=== PATIENT | male | born 1985 | race Caucasian/White ===

== ENCOUNTER 2021-06-26 21:21 | Emergency (ER) | payer OTHER ==
[2021-06-26 21:35] VITALS: BP 129/69
[2021-06-26 23:54] LABS: ALBUMIN 3.8 g/dL (3.5-5.0); BILIRUBIN,TOTAL 0.5 mg/dL (0.2-1.0); CREATININE 1.3 mg/dL (0.5-1.5); THYROID STIMULATING HORMONE 2.12 uIU/mL (0.36-3.74); TOTAL PROTEIN, SERUM 7.8 g/dL (6.0-8.3)
[2021-06-27 00:13] LABS: BASOPHILS % (AUTO) 0.3 % (0.0-5.0); EOSINOPHILS % (AUTO) 0.3 % (0.0-8.0); HEMATOCRIT 40.7 % (42-54); LYMPHOCYTES % (AUTO) 11.2 % (21.0-51.0); MEAN CORPUSCULAR HEMOGLOBIN 29.7 pg (27.0-33.0); MEAN CORPUSCULAR HGB CONC 33.7 g/dL (32.0-36.0); MEAN CORPUSCULAR VOLUME 88.3 fL (79-99); MONOCYTES % (AUTO) 8.2 % (3.0-13.0); NEUTROPHILS % (AUTO) 79.6 % (40.0-77.0); PLATELET COUNT (AUTO) 169 K/uL (130-400); RED BLOOD CELL COUNT(AUTO) 4.61 MIL/uL (4.50-6.20); RED CELL DISTRIBUTION WIDTH 12.9 % (11.0-15.5)
[2021-06-27 00:43] LABS: AMPHET/METH SCREEN,URINE NEGATIVE (NEGATIVE); BARBITURATE SCREEN, URINE NEGATIVE (NEGATIVE); BENZODIAZEPINES SCREEN,URINE NEGATIVE (NEGATIVE); CANNABINOID SCREEN,URINE NEGATIVE (NEGATIVE); COCAINE SCREEN,URINE NEGATIVE (NEGATIVE); OPIATE SCREEN,URINE POSITIVE (NEGATIVE); PHENCYCLIDINE SCREEN,URINE POSITIVE (NEGATIVE)
[2021-06-27 01:00] VITALS: BP 121/75
[2021-06-27] MEDS ORDERED: NAPR-1180 PO (01:00)
== END 2021-06-27 01:35 | disposition home or self-care (01) ==
LOC: EDH 21:21
DX: R56.9 Unspecified convulsions (principal); T40.425A Adverse effect of tramadol, initial encounter; E03.9 Hypothyroidism, unspecified; R73.9 Hyperglycemia, unspecified; R94.5 Abnormal results of liver function studies; I10 Essential (primary) hypertension; G89.29 Other chronic pain; M54.5 Low back pain
CPT/HCPCS: 36415; 70450; 80053; 80305; 84443; 85025

== ENCOUNTER 2024-08-23 02:39 | Emergency (ER) | payer BC ==
[~2024-08-23] VITALS: Ht 182.9 cm; Wt 162.8 kg
[2024-08-23] MEDS: 0.9%NACL 1000ML 1,000 ML IV ONE (04:12)
[2024-08-23] MEDS: ketOROlac 15MG/ML VIAL (15MG/ML) IV ONE ×2 (04:13→05:18)
[2024-08-23 04:17] LABS: BASOPHILS # (AUTO) 0.02 K/uL (0.00-0.20); BASOPHILS % (AUTO) 0.3 % (0.0-5.0); EOSINOPHILS # (AUTO) 0.02 K/uL (0.00-0.70); EOSINOPHILS % (AUTO) 0.3 % (0.0-8.0); HEMATOCRIT 43.6 % (42-54); IMMATURE GRANULOCYTE ABSOLUTE 0.03 K/uL (0-1); LYMPHOCYTES # (AUTO) 1.7 K/uL (1.0-4.8); LYMPHOCYTES % (AUTO) 21.2 % (21.0-51.0); MEAN CORPUSCULAR HEMOGLOBIN 29.5 pg (27.0-33.0); MEAN CORPUSCULAR HGB CONC 33.9 g/dL (32.0-36.0); MEAN CORPUSCULAR VOLUME 86.9 fL (79-99); MONOCYTES # (AUTO) 0.8 K/uL (0.1-1.0); MONOCYTES % (AUTO) 10.3 % (3.0-13.0); NEUTROPHILS # (AUTO) 5.4 K/uL (1.8-7.7); NEUTROPHILS % (AUTO) 67.5 % (40.0-77.0); PLATELET COUNT (AUTO) 208 K/uL (130-400); RED BLOOD CELL COUNT(AUTO) 5.02 MIL/uL (4.50-6.20); RED CELL DISTRIBUTION WIDTH 12.1 % (11.0-15.5); WHITE BLOOD COUNT (AUTO) 7.9 K/uL (4.8-10.8)
[2024-08-23 04:25] LABS: POTASSIUM 3.6 mmol/L (3.5-5.1)
[2024-08-23] MEDS: tamSULOsin HCL 0.4 MG CAP.ER.24H PO ONE (05:18)
[2024-08-23 05:29] LABS: APPEARANCE,URINE CLEAR (CLEAR); BILIRUBIN,URINE NEGATIVE (NEGATIVE); COLOR,URINE LIGHT-YELLOW (YELLOW); GLUCOSE, URINE (UA) >=1000 mg/dL (NEGATIVE); KETONES,URINE 20 mg/dL (NEGATIVE); LEUKOCYTE ESTERASE ,URINE NEGATIVE Leu/uL (NEGATIVE); NITRATE,URINE NEGATIVE (NEGATIVE); OCCULT BLOOD,URINE NEGATIVE (NEGATIVE); PH,URINE 6.5 (5.0-8.0); PROTEIN,URINE NEGATIVE (NEGATIVE); UROBILINOGEN,URINE 0.2 mg/dL (0.2-1.0)
[2024-08-23 05:31] LABS: BACTERIA,URINE RARE /HPF (None Seen); SQUAMOUS EPITHELIAL CELL,UR RARE /HPF (0-2)
[2024-08-23 06:59] LABS: AMPHET/METH SCREEN,URINE NEGATIVE (NEGATIVE); BARBITURATE SCREEN, URINE NEGATIVE (NEGATIVE); BENZODIAZEPINES SCREEN,URINE NEGATIVE (NEGATIVE); CANNABINOID SCREEN,URINE NEGATIVE (NEGATIVE); COCAINE SCREEN,URINE NEGATIVE (NEGATIVE); OPIATE SCREEN,URINE NEGATIVE (NEGATIVE); PHENCYCLIDINE SCREEN,URINE NEGATIVE (NEGATIVE)
[2024-08-23] MEDS: ORPHENADRINE 60MG/2ML IM ONE (07:13)
[2024-08-23] MEDS: TRIAMCINOLONE ACETONIDE 40 MG/ML 1ML VIAL IM ONE (07:13)
[2024-08-23 07:34] VITALS: BP 118/76; PULSE 88; RESP 17; TEMP 97.9; O2SAT 98
== END 2024-08-23 07:42 | disposition home or self-care (01) ==
LOC: EDH 02:39
DX: G89.29 Other chronic pain (principal); M54.50 Low back pain, unspecified; I10 Essential (primary) hypertension
CPT/HCPCS: 99284; 74176; 96374; 96361; 80048; 80305; 85025; 81001; 36415; 96372 ×2; 96376; J7030; J3301; J1885 ×2; J2360

== ENCOUNTER 2024-10-10 08:44 | Emergency (ER) | payer BC ==
[~2024-10-10] VITALS: Ht 182.9 cm; Wt 142.9 kg
[2024-10-10 08:46] VITALS: TEMP 98.3
--- NOTE | 2024-10-10 08:55 | NUR ---
PT JUST PLACED IN MY ED BED 18 BY [facility].
--- NOTE | 2024-10-10 09:12 | NUR ---
SEIZURE PRECAUTION PADS PLACED ON SR X 2 BY RITA WILKS
--- NOTE | 2024-10-10 09:14 | NUR ---
DETOX: PT ASKED IF WE DID "DETOX" IN OUR FACILITY. ED MD MADE AWARE. PT TAKES TRAMADOL FOR HIS CHRONIC BACK/NECK PAINS. HAS NOT TAKEN HIS BP MEDS IN 7 DAYS (LISINOPRIL/AMLODIPINE)
[2024-10-10] MEDS: LORazepam 2 MG/ML 1 ML VIAL IVP ONE (09:22)
[2024-10-10] MEDS: leveTIRACEtam 500 MG/5 ML SD VIAL IV SCH (09:22)
[2024-10-10] MEDS: 0.9%NACL 1000ML 1,000 ML IV ONE (09:22)
--- NOTE | 2024-10-10 09:26 | ERN ---
ED Note History of Present Illness Stated Complaint: SEIZURE Chief Complaint: Seizure Time Seen by MD: 08:51 Dictation: 38-year-old male presents to the ED via EMS for evaluation post seizure. Patient reports back pain and neck discomfort, but denies any SI or any other as sociated symptoms at this time. EMS was called by patient's place of employment for a witnessed seizure that lasted around 30 seconds to 1 minute. Patient does not remember what happened. No blood thinners. Patient reports taking 5 pills of tramadol today and 4 pills of tramadol yesterday. Patient takes pain medication due to his sciatica pain. Allergies: Coded Allergies: No Known Drug Allergies (Unverified Allergy, Unknown, 10/05/23) Home Meds No Active Prescriptions or Reported Meds Past Medical History Past Medical History: Hypertension, Seizure Additional Past Medical Hx: Chronic low back pain, sciatic pain Surgical History: None Family History: Negative Social History: Negative Review of System Dictation Constitutional: Positive for seizure Negative for fever,chills, and weight loss Eyes: Negative for injury, pain,redness, and discharge ENT: Negative for injury,pain or swelling Cardiovascular: Negative for chest pain, palpitations, and edema Respiratory: Negative for shortness of breath, cough, and wheezing, Abdomen/GI: Negative for abdominal pain, nausea, vomiting, diarrhea, and constipation Back: Positive for back pain : Negative for injury, bleeding and discharge MS/Extremity: Negative for injury and deformity Skin: Negative for rash, and discoloration Neuro: Negative for headache, weakness, numbness, tingling, and seizure Psych: Negative for suicide ideation, homicidal ideation, and hallucinations Initial Vital Sign VS Vital Signs Date Time Temp Pulse Resp B/P (MAP) Pulse Ox O2 Delivery O2 Flow Rate FiO2 10/10/24 08:46 98.2 114 20 156/86 99 Room Air 10/10/24 08:57 0 21 Physical Exam Dictation General: awake, alert, NAD Head/Face: Normocephalic, atraumatic Eyes: PERRL, EOMI, vision at baseline ENT: oral cavity clear, TMs clear, no signs of infection Neck: Trachea midline, supple, no nuchal rigidity Cardiovascular: RRR, normal S1/S2, No MRGs, no JVD Respiratory: CTAB, no respiratory distress, No rales or wheezes Abdomen: Soft, non-tender, non-distended, normal bowel sounds, no guarding or rebound. Skin: Warm, dry, normal turgor, no rash MS/Extremity: Pulses equal, no cyanosis, neurovascular intact, FROM Neuro: COAx4, GCS 15, strength 5/5, CN 2-12 intact, normal cerebellar exam, normal gait, Psych: Normal behavior, mood, and affect normal Results (Laboratory/Radiology) Laboratory/Radiology Laboratory Tests Test 10/10/24 09:28 White Blood Count 5.4 K/uL (4.8-10.8) Red Blood Count 4.76 MIL/uL (4.50-6.20) Hemoglobin 13.9 g/dL (14.0-18.0) L Hematocrit 41.3 % (42-54) L Mean Corpuscular Volume 86.8 fL (79-99) Mean Corpuscular Hemoglobin 29.2 pg (27.0-33.0) Mean Corpuscular Hemoglobin Concent 33.7 g/dL (32.0-36.0) Red Cell Distribution Width 12.0 % (11.0-15.5) Platelet Count 181 K/uL (130-400) Mean Platelet Volume 11.0 fL (7.5-10.5) H Immature Granulocyte % (Auto) 0.4 % (0-1) Neutrophils (%) (Auto) 63.6 % (40.0-77.0) Lymphocytes (%) (Auto) 25.2 % (21.0-51.0) Monocytes (%) (Auto) 9.1 % (3.0-13.0) Eosinophils (%) (Auto) 1.3 % (0.0-8.0) Basophils (%) (Auto) 0.4 % (0.0-5.0) Neutrophils # (Auto) 3.4 K/uL (1.8-7.7) Lymphocytes # (Auto) 1.4 K/uL (1.0-4.8) Monocytes # (Auto) 0.5 K/uL (0.1-1.0) Eosinophils # (Auto) 0.07 K/uL (0.00-0.70) Basophils # (Auto) 0.02 K/uL (0.00-0.20) Absolute Immature Granulocyte (auto 0.02 K/uL (0-1) Nucleated Red Blood Cells 0.0 % (0.0-0.19) Sodium Level 135 mmol/L (136-145) L Potassium Level 3.5 mmol/L (3.5-5.1) Chloride Level 96 mmol/L (101-111) L Carbon Dioxide Level 31 mmol/L (21-32) Blood Urea Nitrogen 10 mg/dL (7-18) Creatinine 1.1 mg/dL (0.5-1.3) Glomerular Filtration Rate Calc 89 mL/min (>90) Random Glucose 241 mg/dL (70-105) H Total Calcium 8.4 mg/dL (8.5-10.1) L Total Bilirubin 0.6 mg/dL (0.2-1.0) Direct Bilirubin 0.1 mg/dL (0.0-0.3) Aspartate Amino Transf (AST/SGOT) 94 U/L (10-37) H Alanine Aminotransferase (ALT/SGPT) 134 U/L (12-78) H Alkaline Phosphatase 136 U/L (50-136) Total Creatine Kinase 939 U/L (21-232) *H Total Protein 7.3 g/dL (6.0-8.3) Albumin 3.4 g/dL (3.5-5.0) L Labs Reviewed?: Yes EKG Comment: EKG 10/10/2024 time 9:14 a.m. ventricular rate 100, sinus tachycardia, KS 162, QRS D 102. No STEMI ED Course ED Course Orders Procedure Category Date Status Time 12 Lead Ekg Tracing- EKG 10/10/24 Complete Technical 09:07 Basic Metabolic Panel LAB 10/10/24 Complete 09:07 Cbc With Differential LAB 10/10/24 Complete 09:07 Hepatic Function Panel LAB 10/10/24 Complete 09:07 Creatine Kinase, Total LAB 10/10/24 Complete 09:07 Ct Head/Brain W/O CT 10/10/24 Resulted Contrast 09:07 0.9%Nacl 1000ml (Ns PHA 10/10/24 Complete 1000ml) 09:30 Levetiracetam 500 PHA 10/10/24 In Process Mg/5 Ml Sd V (Keppra 5 09:30 Lorazepam 2 Mg PHA 10/10/24 Complete (Ativan) 09:30 Current Medications Medications (Trade) Dose Ordered Sig/Keith Route PRN Reason Start Time Stop Time Status Last Admin Dose Admin Levetiracetam (kepPRA 500 MG/5 ML SD VIAL) 1,000 mg ONCE IV 10/10/24 09:30 11/09/24 09:29 10/10/24 09:22 Lorazepam (AtiVAN) 0.5 mg ONCE ONCE IVP 10/10/24 09:30 10/10/24 09:31 DC 10/10/24 09:22 Sodium Chloride 1,000 ml @ 0 mls/hr ONCE ONCE IV 10/10/24 09:30 10/10/24 09:31 DC 10/10/24 09:22 Vital Signs Date Time Temp Pulse Resp B/P (MAP) Pulse Ox O2 Delivery O2 Flow Rate FiO2 10/10/24 08:57 101 18 145/96 94 Room Air* 0 21 10/10/24 08:46 98.2 114 20 156/86 99 Room Air HEART Score Response (Comments) Value History: Low suspicion (0) 0 EKG: Normal 0 Age: < 45yrs (0) 0 Risk Factors: 1-2 risk factors (+1) 1 Initial Troponin: Normal limit (0) 0 HEART Score Risk: Low Risk for MACE (1-3) Total 1 Medical Decision Making MDM MDM: Differential diagnosis: Seizure Previous outside records reviewed: Old ER visits. Need for hospitalization: Patient does not meet criteria for hospitalization. Need for emergency major/minor surgery: No Patient's prior external medical records from other ER visits were reviewed by me as indicated. Prior testing and results from previous visits were reviewed. Prior tests were taken into account with medical decision making and resource utilization, independent historian/historians were used to obtain complete medical history. I independently interpreted the test that were performed, results were reviewed by me and considered findings on radiology if ordered. Medical management and examination interpretation discussions were had by me wit h other qualified healthcare professionals as indicated for the patient's care. 38 y/o M with sz episode, stable exam and workup. CIWA score low, stable for outpatient tx. DX & DISP Disposition: Discharge Departure Impression: Primary Impression: Seizure Condition: Stable Scripts No Active Prescriptions or Reported Meds Referrals: MARLEN YAÑEZ MD (PCP) I have reviewed, & agreed with my scribe's, documentation. (Entered by Ricky Padilla, acting as a scribe for Dr. Gurrola) I personally scribed for PATRICIA GURROLA MD ([email or web address]) on 10/10/24 at 09:26. Electron[facility] I personally scribed for PATRICIA GURROLA MD ([email or web address]) on 10/10/24 at 10:35. Electronically submitted by Ricky Padilla ([facility] PATRICIA GURROLA MD Oct 10, 2024 09:26
[2024-10-10 09:40] LABS: BASOPHILS # (AUTO) 0.02 K/uL (0.00-0.20); BASOPHILS % (AUTO) 0.4 % (0.0-5.0); EOSINOPHILS # (AUTO) 0.07 K/uL (0.00-0.70); EOSINOPHILS % (AUTO) 1.3 % (0.0-8.0); HEMATOCRIT 41.3 % (42-54); IMMATURE GRANULOCYTE ABSOLUTE 0.02 K/uL (0-1); LYMPHOCYTES # (AUTO) 1.4 K/uL (1.0-4.8); LYMPHOCYTES % (AUTO) 25.2 % (21.0-51.0); MEAN CORPUSCULAR HEMOGLOBIN 29.2 pg (27.0-33.0); MEAN CORPUSCULAR HGB CONC 33.7 g/dL (32.0-36.0); MEAN CORPUSCULAR VOLUME 86.8 fL (79-99); MONOCYTES # (AUTO) 0.5 K/uL (0.1-1.0); MONOCYTES % (AUTO) 9.1 % (3.0-13.0); NEUTROPHILS # (AUTO) 3.4 K/uL (1.8-7.7); NEUTROPHILS % (AUTO) 63.6 % (40.0-77.0); PLATELET COUNT (AUTO) 181 K/uL (130-400); RED BLOOD CELL COUNT(AUTO) 4.76 MIL/uL (4.50-6.20); WHITE BLOOD COUNT (AUTO) 5.4 K/uL (4.8-10.8)
[2024-10-10 09:49] LABS: CREATININE 1.1 mg/dL (0.5-1.3); POTASSIUM 3.5 mmol/L (3.5-5.1)
[2024-10-10 10:03] LABS: ALBUMIN 3.4 g/dL (3.5-5.0); BILIRUBIN,DIRECT 0.1 mg/dL (0.0-0.3); BILIRUBIN,TOTAL 0.6 mg/dL (0.2-1.0); TOTAL PROTEIN, SERUM 7.3 g/dL (6.0-8.3)
--- NOTE | 2024-10-10 10:07 | HMCIMG ---
CT HEAD/BRAIN W/O CONTRAST HISTORY: Seizure COMPARISON: None TECHNIQUE: Multiple sequential axial images of the head were obtained from the base of the skull through vertex. Patient was not given contrast through intravenous route. FINDINGS: The ventricles and extraventricular CSF spaces are nondilated for patient's age. There is no midline shift, mass effect or herniation. No acute intracranial bleed is seen. Visualized portion of the paranasal sinuses are grossly within normal limits. IMPRESSION: 1. No acute intracranial bleed is seen. CT was performed with one or more following dose reduction techniques: automated exposure control, adjustment of the mA and kv according to patient's size, or use of a iterative reconstruction technique.
--- NOTE | 2024-10-10 10:33 | EKG ---
[facility] Test Date: 2024-10-10 Test Time: 09:14:59 Pat Name: ARMIN BOOTH Department: ED Room: Gender: M Toggler: [id number] : 1985 Requested By: PATRICIA GURROLA Order Number: [id number] Reading MD: René Wang Measurements Intervals Beatty Rate: 100 P: 6 CT: 162 QRS: 2 QRSD: 102 T: -2 QT: 380 QTc: 491 Interpretive Statements Sinus tachycardia Compared to ECG 10/05/2023 15:24:26 Sinus rhythm no longer present Electronically Signed On 10-10-2024 20:02:35 [employer] by René Wang Please click the below link to view image of tracing.
[2024-10-10 12:14] VITALS: BP 136/88; PULSE 92; RESP 16; O2SAT 96
== END 2024-10-10 12:17 | disposition home or self-care (01) ==
LOC: EDH 08:44
DX: R56.9 Unspecified convulsions (principal); G89.29 Other chronic pain; M54.50 Low back pain, unspecified; I10 Essential (primary) hypertension
CPT/HCPCS: 99284; 96365; 70450; 96375; 82550; 80076; 80048; 85025; 36415; 93005; J1953; J7030; J2060

== ENCOUNTER 2025-01-26 19:13 | Emergency (ER) | payer BC ==
[~2025-01-26] VITALS: Ht 182.9 cm; Wt 115.7 kg
--- NOTE | 2025-01-26 19:33 | ERN ---
ED Note History of Present Illness Stated Complaint: SOB, FEELS THROAT CLOSING Chief Complaint: Sepsis Time Seen by MD: 19:24 Dictation: This is a 39-year-old obese male who presented to the emergency room at [facility] with complaints of difficulty breathing and a sensation of throat closing up. His symptoms started a week ago when he had URI symptoms and went to the urgent care center last Thursday and was diagnosed with pharyngitis. As he did not improve he went back to the emergency room at [facility] on Thursday, where a chest x-ray and CT scan of the neck were done and he was given a dose of steroid injection IM and sent home. No antibiotics were prescribed per patient. He feels hot but has not documented any fevers. He has a mild cough but no mucopurulent sputum. No hemoptysis. Does report some hoarseness and raspy voice and wheezing Temperature 100.1 pulse 134 respiratory rate 42 44 blood pressure 151/86 with a pulse oximetry of 94% on room air Claims he was diagnosed with hypertension but is not on any medications on a regular basis Allergies: Coded Allergies: No Known Drug Allergies (Unverified Allergy, Unknown, 10/05/23) Home Meds No Active Prescriptions or Reported Meds Past Medical History Past Medical History: Hypertension, Seizure Additional Past Medical Hx: Chronic low back pain, sciatic pain Surgical History: None Family History: Negative Social History: Smokers (Occasional), ETOH (Occasional), Negative RN Note Reviewed/Agreed w/PFSH: Yes Review of System Dictation Constitutional: Positive for subjective fever, no chills, and weight loss Eyes: Negative for injury, pain,redness, and discharge ENT: Negative for injury,pain or swelling Cardiovascular: Negative for chest pain, palpitations, and edema Respiratory: Positive for shortness of breath, mild cough, and wheezing, Abdomen/GI: Negative for abdominal pain, nausea, vomiting, diarrhea, and constipation Back: Negative for injury and pain : Negative for injury, bleeding and discharge MS/Extremity: Negative for injury and deformity Skin: Negative for rash, and discoloration Neuro: Negative for headache, weakness, numbness, tingling, and seizure Psych: Negative for suicide ideation, homicidal ideation, and hallucinations Initial Vital Sign VS Vital Signs Date Time Temp Pulse Resp B/P (MAP) Pulse Ox O2 Delivery O2 Flow Rate FiO2 3 19:14 100.0 134 48 151/86 94 Room Air* 0 21 Physical Exam Dictation General: awake, alert, oriented x4 not in any acute respiratory distress, appears anxious no nasal flaring, no accessory muscles of respiration use. Head/Face: Normocephalic, atraumatic raspy voice but no stridor Eyes: PERRL, EOMI, vision at baseline ENT: oral cavity clear, TMs clear, no signs of infection Mallampati 4 Neck: Trachea midline, supple, no nuchal rigidity Cardiovascular: Tachy, No MRGs, no JVD Respiratory: Decreased breath sounds with a bilateral wheezes and coarse rhonchi Abdomen: Soft, non-tender, non-distended, normal bowel sounds, no guarding or rebound. Skin: Warm, dry, normal turgor, no rash MS/Extremity: Pulses equal, no cyanosis, neurovascular intact, FROM Neuro: COAx4, GCS 15, strength 5/5, CN 2-12 intact, normal cerebellar exam, normal gait, Psych: Normal behavior, mood, and affect normal Extremities-trace edema without any palpable cords, Homans sign is negative Results (Laboratory/Radiology) Laboratory/Radiology Laboratory Tests Test 01/26/25 19:20 01/26/25 19:29 01/26/25 19:52 01/26/25 20:09 Urine Color COLORLESS (YELLOW) Urine Appearance CLEAR (CLEAR) Urine pH 5.5 (5.0-8.0) Urine Specific [place] 1.034 (1.001-1.031) Urine Protein 10 mg/dL (NEGATIVE) H Urine Glucose (UA) >=1000 mg/dL (NEGATIVE) H Urine Ketones 10 mg/dL (NEGATIVE) H Urine Occult Blood MODERATE (NEGATIVE) H Urine Nitrate NEGATIVE (NEGATIVE) Urine Bilirubin NEGATIVE mg/dL (NEGATIVE) Urine Urobilinogen 0.2 mg/dL (0.2-1.0) Urine Leukocyte Esterase NEGATIVE Lulu/uL Urine RBC 6-10 /HPF (0-1) H Urine WBC 2-5 /HPF (0-1) H Urine Squamous Epithelial Cells RARE /HPF (0-2) Urine Bacteria RARE /HPF (None Seen) Urine Yeast FEW /HPF (None Seen) Urine Opiates Screen NEGATIVE (NEGATIVE) Urine Barbiturates Screen NEGATIVE (NEGATIVE) Urine Phencyclidine Screen NEGATIVE (NEGATIVE) Urine Amphetamines Screen NEGATIVE (NEGATIVE) Urine Benzodiazepines Screen NEGATIVE (NEGATIVE) Urine Cocaine Screen NEGATIVE (NEGATIVE) Urine Marijuana (THC) Screen NEGATIVE (NEGATIVE) Influenza Type A Antigen Negative For Type A Influenza Type B Antigen Negative For Type B SARS-CoV-2, RNA, NAAT NEGATIVE SARS CoV-2 White Blood Count 15.6 K/uL (4.8-10.8) H Red Blood Count 4.46 MIL/uL (4.50-6.20) L Hemoglobin 13.0 g/dL (14.0-18.0) L Hematocrit 38.6 % (42-54) L Mean Corpuscular Volume 86.5 fL (79-99) Mean Corpuscular Hemoglobin 29.1 pg (27.0-33.0) Mean Corpuscular Hemoglobin Concent 33.7 g/dL (32.0-36.0) Red Cell Distribution Width 13.0 % (11.0-15.5) Platelet Count 289 K/uL (130-400) Mean Platelet Volume 11.6 fL (7.5-10.5) H Immature Granulocyte % (Auto) 0.8 % (0-1) Neutrophils (%) (Auto) 83.3 % (40.0-77.0) H Lymphocytes (%) (Auto) 4.7 % (21.0-51.0) L Monocytes (%) (Auto) 11.1 % (3.0-13.0) Eosinophils (%) (Auto) 0.0 % (0.0-8.0) Basophils (%) (Auto) 0.1 % (0.0-5.0) Neutrophils # (Auto) 13.0 K/uL (1.8-7.7) H Lymphocytes # (Auto) 0.7 K/uL (1.0-4.8) L Monocytes # (Auto) 1.7 K/uL (0.1-1.0) H Eosinophils # (Auto) 0.00 K/uL (0.00-0.70) Basophils # (Auto) 0.01 K/uL (0.00-0.20) Absolute Immature Granulocyte (auto 0.13 K/uL (0-1) Nucleated Red Blood Cells 0.0 % (0.0-0.19) White Cell Morphology Comment See comments Sodium Level 129 mmol/L (136-145) L Potassium Level 5.1 mmol/L (3.5-5.1) Chloride Level 92 mmol/L (101-111) L Carbon Dioxide Level 22 mmol/L (21-32) Blood Urea Nitrogen 16 mg/dL (7-18) Creatinine 1.5 mg/dL (0.5-1.3) H Glomerular Filtration Rate Calc 61 mL/min (>90) Random Glucose 699 mg/dL (70-105) *H Lactic Acid Level 3.4 mmol/L (0.8-2.5) H Total Calcium 10.4 mg/dL (8.5-10.1) H Test 01/26/25 22:05 01/26/25 22:22 01/27/25 00:45 Blood Gas Specimen Type Arterial Arterial Blood pH 7.419 (7.350-7.450) Arterial Blood Partial Pressure CO2 27 mmHg (35-48) L Arterial Blood Partial Pressure O2 60.8 mmHg (83.0-108.0) L Arterial Blood HCO3 17.2 mmol/L (21.0-28.0) L Arterial Blood Oxygen Saturation 92.2 % (94.0-98.0) L Arterial Blood Base Excess -5.6 mmol/L (-2.0-3.0) L Blood Gas Temperature 37.0 CELSIUS (35.5-37.0) Blood Gas Vent Mode RA,21 (ROOM AIR) FiO2 21.0 % Blood Gas Specimen Comment RB,DR BRIZUELA Whole Blood Glucose 529 MG/DL (70-110) *H Bedside Glucose Comment Notified Nurse Lactic Acid Level 2.8 mmol/L (0.8-2.5) H Labs Reviewed?: Yes EKG Comment: Twelve lead EKG done on 01/26/2025 at 7:26 p.m. showed a heart rate of 132, OK interval 116, QRS 95, QT/QTC 313/464 Impression sinus tachycardia with no obvious ischemic changes. Interpreted by ER MD Dr. Martinez CT Scan Comment: PATIENT: ARMIN BOOTH MR#: [id number] : 1985 SEX: M AGE: 39 LOCATION: [facility] ORDER 46 STATUS: REG ER REPORT#: [id number] SERVICE 45 REASON: thorat swelling, throat pain and edema ORDERING PHYSICIAN: MICHELLE MARTINEZ MD PROCEDURE: [id number] WO - CT NECK SOFT TISS W/O CONTRAST CT NECK SOFT TISS W/O CONTRAST HISTORY: Throat swelling COMPARISON: None TECHNIQUE: Multiple sequential axial images of the soft tissue neck were obtained. Patient was not given contrast through intravenous route. FINDINGS: Extensive soft tissue swelling is seen surrounding supraglottic, glottic and subglottic area. Superimposed mass lesion cannot be excluded. Subcutaneous fat stranding is also seen. Minimal airway narrowing is seen.. Extensive cervical adenopathy is also seen with the largest lymph node. Visualized portion of brain parenchyma within the posterior fossa is within normal limits. Parapharyngeal fat planes are preserved bilaterally. Parotid glands and submandibular glands are grossly within normal limits. Borderline size cervical lymph nodes are seen. The study is limited due to patient's large body habitus. The airway is patent. Visualized portion of the lung apices are unremarkable. IMPRESSION: 1. Extensive soft tissue swelling is seen surrounding supraglottic, glottic and subglottic area. Superimposed mass lesion cannot be excluded. Subcutaneous fat stranding is also seen. Minimal airway narrowing is seen.. Extensive cervical adenopathy is also seen. The study is limited due to patient's large body habitus. CT was performed with one or more following dose reduction techniques: automated exposure control, adjustment of the mA and kv according to patient's size, or use of a iterative reconstruction technique. DICTATED BY: NAVIN HARRIS MD DATE: 01/26/252126 ELECTRONICALLY SIGNED BY: NAVIN HARRIS MD DATE: 01/26/252141 ED Course ED Course Orders Procedure Category Date Status Time Iv Insertion CPOE 01/26/25 Transmitted 19:18 Pulse Ox(Continuous) RT 01/26/25 Transmitted 19:18 Vital Signs Per CPOE 01/26/25 Transmitted Routine 19:18 12 Lead Ekg Tracing- EKG 01/26/25 Logged Technical 19:18 Cbc With Differential LAB 01/26/25 Complete 19:18 Blood Cult RAJENDRA 01/26/25 In Process 19:18 Urinalysis Profile LAB 01/26/25 Complete 19:18 Lactic Acid LAB 01/26/25 Complete 19:27 Covid Rna Naat LAB 01/26/25 Complete 19:27 Influenza Type A & B, LAB 01/26/25 Complete Rapid 19:27 Basic Metabolic Panel LAB 01/26/25 Complete 19:29 0.9%Nacl 1000ml (Ns PHA 01/26/25 Complete 1000ml) 19:30 Dexamethasone 4mg/Ml PHA 01/26/25 Complete 1ml Vial (Dexametha 20:00 Drug Screen Urine LAB 01/26/25 Complete 19:37 Chest 1vw RAD 01/26/25 Resulted 19:57 Ipratropium/Albuterol PHA 01/26/25 Complete Neb (Duoneb) 21:00 Ct Neck Soft Tiss W/O CT 01/26/25 Resulted Contrast 20:46 Zosyn 3.375gm+Ns 50ml PHA 01/26/25 Complete (Zosyn 3.375gm+Ns 21:30 Acetaminophen 500mg PHA 01/26/25 Complete Tab (Tylenol 500mg T 22:00 Arterial Blood Gas LAB 01/26/25 Complete 22:05 Epineph Pf 1mg PHA 01/26/25 Complete (1:1,000) Resp. 22:30 0.9%Nacl 1000ml (Ns PHA 01/26/25 Complete 1000ml) 22:30 Insulin Regular, PHA 01/26/25 Complete Human 3ml (Humulin R 22:30 Racepinephrine Hcl PHA 01/26/25 Complete (Racepinephrine Neb S 22:30 Lactic Acid (Removed) LAB 01/26/25 Complete 23:24 Dexamethasone 4mg/Ml PHA 01/27/25 Complete 1ml Vial (Dexametha 01:30 Ipratropium/Albuterol PHA 01/27/25 Complete Neb (Duoneb) 01:30 Morphine 2mg Syg PHA 01/27/25 Complete (Morphine 2mg Syg) 02:30 Current Medications Medications (Trade) Dose Ordered Sig/Keith Route PRN Reason Start Time Stop Time Status Last Admin Dose Admin Acetaminophen (TYLenol 500MG TAB) 1,000 mg ONCE ONCE PO 01/26/25 22:00 01/26/25 22:01 DC 01/26/25 22:17 Albuterol (DUOneb) 1 UDVIAL ONCE ONCE IH 01/26/25 21:00 01/26/25 21:01 DC 01/26/25 21:42 Albuterol (DUOneb) 1 UDVIAL ONCE ONCE IH 01/27/25 01:30 01/27/25 01:31 DC 01/27/25 01:38 Dexamethasone Sodium Phosphate (dexaMETHasone 4MG/ML 1ML VIAL) 4 mg ONCE ONCE IV 01/27/25 01:30 01/27/25 01:31 DC 01/27/25 01:50 Dexamethasone Sodium Phosphate (dexaMETHasone 4MG/ML 1ML VIAL) 6 mg ONCE ONCE IVP 01/26/25 20:00 01/26/25 20:01 DC 01/26/25 20:06 Epinephrine (Racepinephrine Neb Soln) 0.5ML ONCE ONCE NEB 01/26/25 22:30 01/26/25 22:31 DC 01/26/25 22:30 Epinephrine HCl (ADRENaline PF 1MG AMP) 0.2 mg ONCE ONCE IH 01/26/25 22:30 01/26/25 22:19 DC Insulin Human Regular (humuLIN R 100 UNIT/ML 3ML) 10 unit ONCE ONCE IV 01/26/25 22:30 01/26/25 22:31 DC 01/26/25 22:23 Morphine Sulfate (morPHINE 2MG SYG) 2 mg ONCE ONCE IVP 01/27/25 02:30 01/27/25 02:31 DC 01/27/25 02:20 Piperacillin Sod/ Tazobactam Sod (Zosyn 3.375gm+NS 50ml) 3.375 gm ONCE ONCE IV 01/26/25 21:30 01/26/25 21:31 DC 01/26/25 21:15 Sodium Chloride 1,000 ml @ 0 mls/hr ONCE ONCE IV 01/26/25 19:30 01/26/25 19:51 DC 01/26/25 20:06 Sodium Chloride 1,000 ml @ 0 mls/hr ONCE ONCE IV 01/26/25 22:30 01/26/25 22:31 DC 01/26/25 22:20 Vital Signs Date Time Temp Pulse Resp B/P (MAP) Pulse Ox O2 Delivery O2 Flow Rate FiO2 01/27/25 05:29 99.7 120 28 121/91 96 Nasal Cannula* 2 28 01/27/25 04:26 100.0 118 29 134/92 96 Nasal Cannula* 2 28 01/27/25 03:30 118 28 143/86 96 Room Air* 0 01/27/25 02:24 118 30 147/78 94 Room Air* 0 21 01/27/25 01:38 116 20 01/27/25 01:21 122 28 125/83 94 Room Air* 0 21 01/27/25 00:11 99.3 120 29 134/75 95 Nasal Cannula* 2 28 01/26/25 23:03 100.4 129 34 136/83 94 Room Air* 0 21 01/26/25 22:30 127 32 01/26/25 22:07 128 33 40 01/26/25 22:04 100.6 132 29 142/71 96 Room Air* 0 21 01/26/25 21:42 126 36 01/26/25 21:20 100.6 124 26 128/78 96 Room Air* 0 21 01/26/25 19:56 135 20 119/78 96 Room Air* 0 21 01/26/25 19:15 100.0 134 48 151/86 94 Room Air 0 01/26/25 19:14 100.0 134 48 151/86 94 Room Air* 0 21 We will perform diagnostic labs, advanced imaging and administer medications according to the patient's complaint. Once the results are available, will review and personally interpreted the labs to rule out any acute life- threatening emergency the trach require immediate intervention and treatment. I will then re-evaluate the patient after treatment and diagnostic exams have return to determine whether the patient requires any further testing, can safely be discharged home or need further admission to hospital for additional treatment and evaluation. Stat Decadron, breathing treatment was given. Stat CT soft tissues of the neck was also requested along with sepsis pathway Labs reviewed CBC shows a white count of 15.6 hemoglobin of 13 platelets 287. BNP 7 is significant for a sodium of 129 chloride 92 potassium 5.1 bicarb 22 BUN and creatinine are 16 and 1.5 glucose is 699. Lactate is 3.4 Chest x-ray shows a poor inspiratory effort right basilar infiltrate Empiric antibiotics requested. Also a dose of racemic epi nebulizer and BiPAP was initiated CT soft tissues of the neck showed upper airway edema extensive cervical adenopathy. Due to lack of ear nose throat specialist at this facility, transfer to another hospital initiated 12:40 a.m. transfer service at [facility] called back and connected me to Dr. Maurice, ear nose throat specialist. I have discussed extensively patient's presentation radiology findings of supraglottic glottic and subglottic edema with surrounding masslike lesion as there is no abscess, he basically stated that patient is not a candidate for transfer and general surgery should be able to do a tracheostomy on this patient. I explained to him that patient at this time does not actively need emergent intubation but has a tendency to decline but I am more concerned about the extensive swelling and masslike lesion rather than just the airway itself. He basically questioned if Iwas even a physician and know what I am doing. I introduced myself initially as an MD and reiterated that I do have multiple subspecialties training and he refused to engage in any further discussion and hung up the phone. It was an extremely unpleasant interaction 12:44 a.m.. called dope house operator helper and updated her 12:50 a.m.. the transfer center coordinator called back to apologize to me on the ENT physicians Ms. Lr and informed me that he tried to call Dr. Woodruff, oral surgeon who apparently also refused to accept the patient 1255 a.m.-I have updated the patient and spouse and informed them that I will be continuing the antibiotics and all the supportive care needed and monitor him while in the ER. 3:50 a.m. patient is comfortable and feeling a little better. Expectorating mucopurulent sputum. Able to also speak better than when he came in mails supervisor is still trying to make effort to find ENT services which has been extremely challenging. [facility] has been approached and awaiting reply 6:08 a.m.-patient accepted by [facility] and EMS is here to transport him Medical Decision Making MDM MDM: Differential diagnosis: Epiglottitis, pharyngitis, abscess in the neck, Pavel's angina, pneumonia Rationale: Tests considered and ordered secondary to shared decision making include: labs, ECG and radiology Previous outside records reviewed: Old ER visits. Risk of complication and/or morbidity or mortality of patient management: None Medications-Per medication reconciliation Need for hospitalization: Patient does meet criteria for hospitalization. Need for emergency major/minor surgery: No There are no social concerns with this patient. Prescription drug management Prescriptions will include symptomatic care Patient's prior external medical records from other ER visits were reviewed by me as indicated. Prior testing and results from previous visits were reviewed. Prior tests were taken into account with medical decision making and resource utilization, independent historian/historians were used to obtain complete medical history. I independently interpreted the test that were performed, results were reviewed by me and considered findings on radiology if ordered. Medical management and examination interpretation discussions were had by me with other qualified healthcare professionals as indicated for the patient's care. Problem List Problem List: (1) Sepsis (2) Supraglottic edema (3) Pneumonia involving right lung (4) Diabetes mellitus, new onset (5) Leukocytosis (6) Lactic acidosis (7) Acute kidney injury (8) Morbid obesity Critical Care Note Critical Time: 60 minutes Comment(s) Life-threatening illness; severe upper airway edema, deep neck infection, pneumonia Risk of morbidity mortality-high Complexity of medical decision making-high (X) high probability of sudden clinically significant deterioration in the patient's condition required the highest level of my preparedness to intervene urgently. I provided critical care services requiring my direct and personal management as noted below; (x) chart data review (x) reviewing nurse's notes and/charts (x) documentation time (x) consultation collaboration on findings and therapy options (x) medication orders and management (x) re-evaluations (x) care, transfer of care, and discharge plans (x) ordering and interpreting studies (x) ordering and reviewing labs (x) obtaining necessary history from family, EMS, shelter, private MD, surrogate decision makers because patient was unable to give history due to limitations in the mental status (x) aggregate critical care time was ( 60 ) minutes. This includes only time during which I was engaged in work directly related to the patient's care as described above whether at the bedside or elsewhere in the ER while the patient was critical. My time did not include minutes spent treating any other patients simultaneously or on activities that did not directly contribute to the patie nt's treatment. It did not include time spent performing other reported procedures or services of residents if any. Michelle RIGGSCP DX & DISP Disposition: Transfer Departure Impression: Primary Impression: Sepsis Additional Impressions: Supraglottic edema, Pneumonia involving right lung, Diabetes mellitus, new onset, Leukocytosis, Lactic acidosis, Acute kidney injury, Morbid obesity Condition: Stable Scripts No Active Prescriptions or Reported Meds Additional Instructions: The patient has been informed about all the diagnostic tests and procedures carried out in the emergency room today and has confirmed understanding of the results. Patient will be transferred to a facility that provides a higher level of care since such services are not accessible locally or within our immediate community. The patient is alert oriented and not experiencing any acute distress. There are no signs of sepsis and patient's hemodynamic status is stable at the moment. Medically, the patient is considered stable for transfer Due to non availability of specialty services-ENT, patient will be transferred to another hospital for ENT evaluation and management Referrals: MARLEN YAÑEZ MD (PCP) MICHELLE MARTINEZ MD Jan 26, 2025 19:33
[2025-01-26 19:57] LABS: ADD UA MICROSCOPIC YES; APPEARANCE,URINE CLEAR (CLEAR); BILIRUBIN,URINE NEGATIVE (NEGATIVE); COLOR,URINE COLORLESS (YELLOW); GLUCOSE, URINE (UA) >=1000 mg/dL (NEGATIVE); KETONES,URINE 10 mg/dL (NEGATIVE); LEUKOCYTE ESTERASE ,URINE NEGATIVE Leu/uL (NEGATIVE); NITRATE,URINE NEGATIVE (NEGATIVE); OCCULT BLOOD,URINE MODERATE (NEGATIVE); PH,URINE 5.5 (5.0-8.0); PROTEIN,URINE 10 mg/dL (NEGATIVE); UROBILINOGEN,URINE 0.2 mg/dL (0.2-1.0)
[2025-01-26 19:59] LABS: BACTERIA,URINE RARE /HPF (None Seen); MUCUS,URINE RARE LPF (None Seen); SQUAMOUS EPITHELIAL CELL,UR RARE /HPF (0-2); YEAST,URINE BUDDING FEW /HPF (None Seen)
[2025-01-26 20:04] LABS: AMPHET/METH SCREEN,URINE NEGATIVE (NEGATIVE); BARBITURATE SCREEN, URINE NEGATIVE (NEGATIVE); BENZODIAZEPINES SCREEN,URINE NEGATIVE (NEGATIVE); CANNABINOID SCREEN,URINE NEGATIVE (NEGATIVE); COCAINE SCREEN,URINE NEGATIVE (NEGATIVE); OPIATE SCREEN,URINE NEGATIVE (NEGATIVE); PHENCYCLIDINE SCREEN,URINE NEGATIVE (NEGATIVE)
[2025-01-26] MEDS: 0.9%NACL 1000ML 1,000 ML IV ONE ×2 (20:06→22:20)
[2025-01-26] MEDS: dexaMETHasone SOD PHOSPHATE 4 MG/ML 1ML VIAL IVP ONE (20:06)
[2025-01-26 20:08] LABS: SARS-CoV-2, RNA, NAAT NEGATIVE SARS CoV-2 (NEGATIVE)
[2025-01-26 20:11] LABS: INFLUENZA TYPE A Negative For Type A (NEGATIVE); INFLUENZA TYPE B Negative For Type B (NEGATIVE)
[2025-01-26 21:10] LABS: BASOPHILS # (AUTO) 0.01 K/uL (0.00-0.20); BASOPHILS % (AUTO) 0.1 % (0.0-5.0); HEMATOCRIT 38.6 % (42-54); IMMATURE GRANULOCYTE ABSOLUTE 0.13 K/uL (0-1); LYMPHOCYTES # (AUTO) 0.7 K/uL (1.0-4.8); LYMPHOCYTES % (AUTO) 4.7 % (21.0-51.0); MEAN CORPUSCULAR HEMOGLOBIN 29.1 pg (27.0-33.0); MEAN CORPUSCULAR HGB CONC 33.7 g/dL (32.0-36.0); MEAN CORPUSCULAR VOLUME 86.5 fL (79-99); MONOCYTES # (AUTO) 1.7 K/uL (0.1-1.0); MONOCYTES % (AUTO) 11.1 % (3.0-13.0); NEUTROPHILS % (AUTO) 83.3 % (40.0-77.0); PLATELET COUNT (AUTO) 289 K/uL (130-400); RED BLOOD CELL COUNT(AUTO) 4.46 MIL/uL (4.50-6.20); WHITE BLOOD COUNT (AUTO) 15.6 K/uL (4.8-10.8)
[2025-01-26 21:10] LABS: CREATININE 1.5 mg/dL (0.5-1.3); POTASSIUM 5.1 mmol/L (3.5-5.1)
[2025-01-26] MEDS: ZOSYN 3.375GM +NS 50ML IV ONE (21:15)
[2025-01-26 21:42] VITALS: PULSE 126; RESP 36
[2025-01-26] MEDS: IpraTROPium/alBUTERol SULFATE 3 ML SOLUTION IH ONE (21:42)
--- NOTE | 2025-01-26 21:42 | HMCIMG ---
CT NECK SOFT TISS W/O CONTRAST HISTORY: Throat swelling COMPARISON: None TECHNIQUE: Multiple sequential axial images of the soft tissue neck were obtained. Patient was not given contrast through intravenous route. FINDINGS: Extensive soft tissue swelling is seen surrounding supraglottic, glottic and subglottic area. Superimposed mass lesion cannot be excluded. Subcutaneous fat stranding is also seen. Minimal airway narrowing is seen.. Extensive cervical adenopathy is also seen with the largest lymph node. Visualized portion of brain parenchyma within the posterior fossa is within normal limits. Parapharyngeal fat planes are preserved bilaterally. Parotid glands and submandibular glands are grossly within normal limits. Borderline size cervical lymph nodes are seen. The study is limited due to patient's large body habitus. The airway is patent. Visualized portion of the lung apices are unremarkable. IMPRESSION: 1. Extensive soft tissue swelling is seen surrounding supraglottic, glottic and subglottic area. Superimposed mass lesion cannot be excluded. Subcutaneous fat stranding is also seen. Minimal airway narrowing is seen.. Extensive cervical adenopathy is also seen. The study is limited due to patient's large body habitus. CT was performed with one or more following dose reduction techniques: automated exposure control, adjustment of the mA and kv according to patient's size, or use of a iterative reconstruction technique.
--- NOTE | 2025-01-26 21:53 | HMCIMG ---
CHEST 1VW HISTORY: Sepsis COMPARISON: None FINDINGS: A frontal projection of the chest was obtained. Mild bilateral pulmonary infiltrates are seen may be related to mild pulmonary vascular congestion with possible superimposed pneumonitis. The heart is borderline enlarged. Poor inspiratory effort is seen. No evidence of aortic calcification is seen. IMPRESSION: 1. Mild bilateral pulmonary infiltrates are seen may be related to mild pulmonary vascular congestion with possible superimposed pneumonitis.
[2025-01-26 22:06] LABS: ABG BASE EXCESS -5.6 mmol/L (-2.0-3.0); ABG HCO3 17.2 mmol/L (21.0-28.0); ABG OXYGEN SATURATION 92.2 % (94.0-98.0); ABG PCO2 27 mmHg (35-48); ABG PH 7.419 (7.350-7.450); PO2, ARTERIAL BG 60.8 mmHg (83.0-108.0); VENT MODE, BG RA,21 (ROOM AIR)
[2025-01-26 22:07] VITALS: PULSE 128; RESP 33; O2SAT 97
--- NOTE | 2025-01-26 22:13 | NUR ---
NEED FOR TRANSFER SPECIMEN PREPARATION ASSISTANT NOTIFIED OF NEED TO TRANSFER FOR ENT SERVICES, DX FRENCH THOMAS
[2025-01-26] MEDS: acetaMINOPHEN 500 MG TABLET PO ONE (22:17)
[2025-01-26] MEDS: INSULIN humuLIN R 100 UNIT/ML 3ML IV ONE (22:23)
[2025-01-26 22:30] VITALS: PULSE 127; RESP 32
[2025-01-26] MEDS ORDERED: EPINEPHRINE 1 MG IH ONE (22:30)
[2025-01-26] MEDS: RACEPINEPHRINE HCL 2.25% 0.5 ML NEB SOLN NEB ONE (22:30)
--- NOTE | 2025-01-26 22:57 | NUR ---
TRANSFER CALL PLACED TO [facility] CRECHE ATTENDANT TO INITIATE TRANSFER FOR ENT SERVICES
--- NOTE | 2025-01-26 23:04 | NUR ---
pt removed bipap at this time, states that he is having difficulty breathing with mask on and wants a break.
--- NOTE | 2025-01-27 00:12 | NUR ---
PTS RADHA LEFT HER NUMBER [phone] IN CASE WE NEEDED TO CONTACT HER FOR ANYTHING.
--- NOTE | 2025-01-27 01:12 | NUR ---
REPORT GIVEN TO KARLA JARAMILLO
[2025-01-27 01:38] VITALS: PULSE 116; RESP 20
[2025-01-27] MEDS: IpraTROPium/alBUTERol SULFATE 3 ML SOLUTION IH ONE (01:38)
[2025-01-27] MEDS: dexaMETHasone SOD PHOSPHATE 4 MG/ML 1ML VIAL IV ONE (01:50)
--- NOTE | 2025-01-27 01:55 | NUR ---
TRANSFER CALLED [facility] FOR UPDATE ON TRANSFER. PATIENT WAS DECLINED STATING THAT THE DOCTORS THOUGHT WE COULD MANAGE THE CARE OF THIS PATIENT.
--- NOTE | 2025-01-27 01:58 | NUR ---
TRANSFER CALL PLACED TO [facility]IRONMENTAL ENGINEERING INTERN TO INITIATE TRANSFER FOR ENT SERVICES AND ICU BED
--- NOTE | 2025-01-27 02:16 | NUR ---
TRANSFER PERTINENT INFORMATION FAXED TO [facility] REQUESTED
[2025-01-27] MEDS: morPHINE 2 MG SYG IVP ONE (02:20)
--- NOTE | 2025-01-27 03:56 | NUR ---
TRANSFER PT. WAS ACCEPTED @ 0345 BY JERICHO TA MD FOR TRANSFER TO [facility]. ROOM ASSIGNMENT AT THIS TIME: ICU 2. REPORT: [phone]
--- NOTE | 2025-01-27 04:14 | NUR ---
[facility] CALLED FOR TRANSPORT OF MONITORED, ICU PATIENT ON NASAL CANNULA OXYGEN TO [facility]
[2025-01-27 05:29] VITALS: BP 121/91; PULSE 120; RESP 28; TEMP 99.7; O2SAT 96
--- NOTE | 2025-01-27 05:59 | NUR ---
REPORT GIVEN TO KARLA RENDON AT [facility]
--- NOTE | 2025-01-27 06:24 | EKG ---
[facility] Test Date: 2025-01-26 Test Time: 19:26:56 Pat Name: ARMIN BOOTH Department: ED Room: Gender: Pharmacist Aide: [facility] : 1985 Requested By: KENAN BARRETT Order Number: [id number] Reading MD: René Wang Measurements Intervals Glide Rate: 132 P: 18 [place]: 116 QRS: 8 QRSD: 95 T: 11 QT: 313 QTc: 464 Interpretive Statements Sinus tachycardia Compared to ECG 10/10/2024 09:14:59 No significant changes Electronically Signed On 01-27-2025 14:48:34 PRESCHOOL EDUCATION DIRECTOR by René Wang Please click the below link to view image of tracing.
== END 2025-01-27 06:09 | disposition short-term general hospital (02) ==
LOC: EDH 19:13
DX: A41.9 Sepsis, unspecified organism (principal); J38.4 Edema of larynx; J18.9 Pneumonia, unspecified organism; E11.9 Type 2 diabetes mellitus without complications; E66.01 Morbid (severe) obesity due to excess calories; E87.20 Acidosis, unspecified; I10 Essential (primary) hypertension; N17.9 Acute kidney failure, unspecified; F17.200 Nicotine dependence, unspecified, uncomplicated; Z20.822 Contact with and (suspected) exposure to COVID-19
CPT/HCPCS: 99291; 96365; 70490; 71045; 87635; 96375 ×2; 80048; 82803; 80305; 85025; 87040 ×2; 87086; 87186; 87804 ×2; 82948; 83605 ×2; 36415 ×2; 93005; 36600; 94660; 81001; 96376; 94640 ×2; J1815; J1100 ×2; J7030 ×2; J2543; J2270; 99284

== ENCOUNTER 2025-03-17 08:23 | Emergency (ER) | payer BC ==
[~2025-03-17] VITALS: Ht 182.9 cm; Wt 154.2 kg
--- NOTE | 2025-03-17 08:37 | ERN ---
General Chief Complaint: Fever Stated Complaint: FEVER Time Seen by MD: 08:26 History of Present Illness Initial Comments 39-year-old male history of obesity, diabetes, hypertension, who presents for fever, rhinorrhea, sore throat, congestion beginning about 6 hours ago. No vomiting or diarrhea. No abdominal pain. No sputum production. Patient reports that he had a bacterial infection in the throat causing sepsis recently, which is why he was concerned and came here to the ER. Allergies: Coded Allergies: No Known Drug Allergies (Unverified Allergy, Unknown, 10/05/23) Home Meds No Active Prescriptions or Reported Meds Past Medical History Past Medical History: Hypertension, Seizure Medical History Other: Chronic low back pain, sciatic pain Past Surgical History: None Family History Family History: Negative Social History Social History: Smokers, ETOH, Negative ROS Dictation CONSTITUTIONAL: Subjective fever HEAD/FACE: No signs of trauma. EENT: Mild sore throat, rhinorrhea and congestion RESPIRATORY: Dry cough. CARDIOVASCULAR: No chest pain, no edema, no palpitations, no syncope. GASTROINTESTINAL/ABDOMINAL: No abdominal pain, no constipation, no diarrhea, no nausea, no vomiting. GENITOURINARY: No abnormal discharge, no dysuria, no frequent urination, no hematuria. No complaints of pain in the genitals. MUSCULOSKELETAL: No back pain, no gout, no joint pain, no joint swelling, no muscle pain, no muscle stiffness, no neck pain. INTEGUMENTARY: No change in color, no change in hair/nails, no dryness, no lesion, no lumps, no rash. NEUROLOGICAL/PSYCH: No anxiety, not depressed, no emotional problem, no headache, no numbness, no pre-existing deficit, no history of seizures, no tremors, no weakness. HEMATOLOGIC/LYMPHATIC: Not anemic, no history of blood clots, no apparent bleeding, no bruising, glands not swollen. All Systems Negative, Except as Noted. Physical Exam Physical Exam Dictation VITAL SIGNS: Reviewed. GENERAL APPEARANCE: Alert, oriented x3, no acute distress, obese. HEAD AND FACE: Non-traumatic. EYES: PERRL, pink conjunctivas, eyelid no trauma, anterior chamber clear. EARS: Pinnas intact and no signs of trauma or erythema. Ear canals clear and no discharge. TMs no erythema. NOSE: No discharge, no bleeding. OROPHARYNX: Mouth normal, teeth no caries, tongue pink. Pharynx clear, no erythema. Tonsils no exudates, no abscesses noted. Mucous membrane moist. NECK: Supple, non-tender, no thyromegaly, no masses, no JVD, no bruits. BREAST: Deferred. CHEST: No tenderness, no crepitus, no paradoxical movement, no retractions. LUNGS: Clear, well-ventilated, symmetric, no rales, no wheezing, no rhonchi, no stridor, good breath sounds bilaterally. HEART: Regular rate, regular rhythm, no murmur, no gallops. VASCULAR: No peripheral edema. ABDOMEN: Soft, positive bowel sounds, nondistended, no guarding, nontender, no rebound, no masses no hepatomegaly, no splenomegaly, no Enriquez's sign, no hernias. RECTAL: Deferred. GENITAL: Deferred. NEUROLOGICAL: Normal speech, gross motor function intact, gross sensory function intact. MUSCULOSKELETAL: Neck nontender, full range of motion, back nontender, full range of motion. EXTREMITIES: Nontender, full range of motion. SKIN: Color pink, dry, no turgor, no rash, no lacerations, no abrasions, no contusions. LYMPHATICS: Deferred. Results Laboratory and Microbiology Lab and Micro Result Laboratory Tests Test 03/17/25 08:29 03/17/25 08:38 03/17/25 08:43 Influenza Type A Antigen Negative For Type A Influenza Type B Antigen Negative For Type B SARS-CoV-2 Antigen (Rapid) POSITIVE FOR SARS AG Group A Streptococcus Rapid negative (NEGATIVE) White Blood Count 7.5 K/uL (4.8-10.8) Red Blood Count 5.20 MIL/uL (4.50-6.20) Hemoglobin 15.2 g/dL (14.0-18.0) Hematocrit 45.5 % (42-54) Mean Corpuscular Volume 87.5 fL (79-99) Mean Corpuscular Hemoglobin 29.2 pg (27.0-33.0) Mean Corpuscular Hemoglobin Concent 33.4 g/dL (32.0-36.0) Red Cell Distribution Width 15.2 % (11.0-15.5) Platelet Count 190 K/uL (130-400) Mean Platelet Volume 9.8 fL (7.5-10.5) Immature Granulocyte % (Auto) 0.1 % (0-1) Neutrophils (%) (Auto) 73.6 % (40.0-77.0) Lymphocytes (%) (Auto) 16.0 % (21.0-51.0) L Monocytes (%) (Auto) 9.5 % (3.0-13.0) Eosinophils (%) (Auto) 0.7 % (0.0-8.0) Basophils (%) (Auto) 0.1 % (0.0-5.0) Neutrophils # (Auto) 5.5 K/uL (1.8-7.7) Lymphocytes # (Auto) 1.2 K/uL (1.0-4.8) Monocytes # (Auto) 0.7 K/uL (0.1-1.0) Eosinophils # (Auto) 0.05 K/uL (0.00-0.70) Basophils # (Auto) 0.01 K/uL (0.00-0.20) Absolute Immature Granulocyte (auto 0.01 K/uL (0-1) Nucleated Red Blood Cells 0.0 % (0.0-0.19) Sodium Level 135 mmol/L (136-145) L Potassium Level 3.7 mmol/L (3.5-5.1) Chloride Level 98 mmol/L (101-111) L Carbon Dioxide Level 29 mmol/L (21-32) Blood Urea Nitrogen 9 mg/dL (7-18) Creatinine 0.9 mg/dL (0.5-1.3) Glomerular Filtration Rate Calc 113 mL/min (>90) Random Glucose 148 mg/dL (70-105) H Lactic Acid Level 2.2 mmol/L (0.8-2.5) Total Calcium 9.2 mg/dL (8.5-10.1) Total Creatine Kinase 2435 U/L (21-232) #*H Troponin I High Sensitivity 6 ng/L (4-75) Urine Color LIGHT-YELLOW (YELLOW) Urine Appearance CLEAR (CLEAR) Urine pH 7.0 (5.0-8.0) Urine Specific [place] 1.014 (1.001-1.031) Urine Protein NEGATIVE mg/dL (NEGATIVE) Urine Glucose (UA) NEGATIVE mg/dL (NEGATIVE) Urine Ketones NEGATIVE mg/dL (NEGATIVE) Urine Occult Blood NEGATIVE (NEGATIVE) Urine Nitrate NEGATIVE (NEGATIVE) Urine Bilirubin NEGATIVE mg/dL (NEGATIVE) Urine Urobilinogen 0.2 mg/dL (0.2-1.0) Urine Leukocyte Esterase NEGATIVE Lulu/uL MDM CC: Fever, congestion, cough for a few hours now Historian: Patient Comorbidities: Obesity, diabetes, hypertension, history of sepsis Limitations by social determinants of health: None Differential diagnosis: Viral URI, bacterial infection, strep pharyngitis, flu- like illness, sepsis, other. Vital signs: Heart rate 123, temp 100.0, otherwise vital signs stable and remained stable here in the ER. Labs (independently ordered and interpreted by me): No leukocytosis no anemia, there is a right shift lymphocytes 16%. Chemistry panel shows stable electrolytes, glucose stable. Lactic acid 2.2. Troponin. Calcium stable. Urinalysis is normal. Flu, strep negative. COVID+, consistent with symptoms. CXR (independently interpreted by me): No focal infiltrates CK elevated consistent with dehydration. no electrolyte abnormality or OSEI. PO tolerant. Treatment in ED: IV Toradol, IV fluids Re-evaluation: Patient was stable. Symptoms most consistent with a viral infection. The clinical exam is unremarkable. No signs of SIRS or sepsis. No signs of bacterial infection. This point in time we will recommend [id number] cough and cold medications and recommend the patient follows up in 48 hours with the PCP or return to the emergency department as needed. ED Course Orders Procedure Category Date Status Time Rapid (Group A Strep) LAB 03/17/25 In Process 08:28 Influenza Type A & B, LAB 03/17/25 In Process Rapid 08:28 Covid19 (Sars Antigen LAB 03/17/25 In Process Rapid) 08:28 Cbc With Differential LAB 03/17/25 Complete 08:31 Blood Cult RAJENDRA 03/17/25 Logged 08:31 Urinalysis Profile LAB 03/17/25 Complete 08:31 Culture Urine RAJENDRA 03/17/25 In Process 08:31 0.9%Nacl 1000ml (Ns PHA 03/17/25 In Process 1000ml) 09:00 Creatine Kinase, Total LAB 03/17/25 Complete 08:31 Troponin I High LAB 03/17/25 Complete Sensitivity 08:31 Lactic Acid LAB 03/17/25 Complete 08:31 Basic Metabolic Panel LAB 03/17/25 Complete 08:31 Chest 1vw RAD 03/17/25 Resulted 08:31 Ketorolac PHA 03/17/25 Complete Tromethamine 15mg/Ml 09:00 Current Medications Medications (Trade) Dose Ordered Sig/Keith Route PRN Reason Start Time Stop Time Status Last Admin Dose Admin Ketorolac Tromethamine (toRADol) 15 mg ONCE ONCE IV 03/17/25 09:00 03/17/25 09:01 DC 03/17/25 08:54 Sodium Chloride 4,626 ml @ 1,542 mls/hr ONCE ONCE IV 03/17/25 09:00 03/17/25 11:59 03/17/25 08:43 Vital Signs Date Time Temp Pulse Resp B/P (MAP) Pulse Ox O2 Delivery O2 Flow Rate FiO2 03/17/25 08:24 100.0 123 18 153/91 99 Room Air DX & DISP Disposition: Discharge Departure Impression: Primary Impression: COVID-19 Additional Impressions: Elevated CK, Dehydration Condition: Stable Scripts Acetaminophen (Tylenol) 500 Mg Tab 2 TAB PO Q6HPRN PRN for pain or fever for 10 Days, #30 TAB 0 Refills Prov: NAV ACEVES DO 03/17/25 Nirmatrelvir/Ritonavir (Paxlovid 300-100 mg Dose Pack) 300 Mg (150 Mg X 2)-100 Mg Tab.ds.pk 1 EACH PO BID, #1 PACK Prov: NAV ACEVES DO 03/17/25 Meloxicam (Meloxicam) 15 Mg Tablet 15 MG PO DAILY PRN for PAIN for 10 Days, #10 TAB Prov: NAV ACEVES DO 03/17/25 Additional Instructions: You have COVID 19. This is likely the cause of your symptoms. You also show signs of dehydration in your labs. Your lab work (CBC, BMP, lactic acid,, troponin, urinalysis, flu, strep swab) is unremarkable. Your CK level is elevated consistent with dehydration. Your chest x-ray is clear. I have prescribed PAXLOVID, which is an antiviral medication for COVID 19. Take as prescribed. I have prescribed meloxicam, which is an anti-inflammatory medication that works for pain. Take as needed. I recommend that you take [id number] cough and cold medications such as DayQuil or NyQuil. Drink plenty of liquids. I recommend that you return to the emergency department or follow up with your primary doctor in 48 hours if you continue with fever. Return to the emergency department sooner if you have any concerns. Referrals: MARLEN YAÑEZ MD (PCP) NAV ACEVES DO Mar 17, 2025 08:37
[2025-03-17] MEDS: [UNRECOGNIZED DRUG - OTHER] IV ONE (08:43)
[2025-03-17 08:49] LABS: BASOPHILS # (AUTO) 0.01 K/uL (0.00-0.20); BASOPHILS % (AUTO) 0.1 % (0.0-5.0); EOSINOPHILS # (AUTO) 0.05 K/uL (0.00-0.70); EOSINOPHILS % (AUTO) 0.7 % (0.0-8.0); HEMATOCRIT 45.5 % (42-54); IMMATURE GRANULOCYTE ABSOLUTE 0.01 K/uL (0-1); LYMPHOCYTES # (AUTO) 1.2 K/uL (1.0-4.8); MEAN CORPUSCULAR HEMOGLOBIN 29.2 pg (27.0-33.0); MEAN CORPUSCULAR HGB CONC 33.4 g/dL (32.0-36.0); MEAN CORPUSCULAR VOLUME 87.5 fL (79-99); MONOCYTES # (AUTO) 0.7 K/uL (0.1-1.0); MONOCYTES % (AUTO) 9.5 % (3.0-13.0); NEUTROPHILS # (AUTO) 5.5 K/uL (1.8-7.7); NEUTROPHILS % (AUTO) 73.6 % (40.0-77.0); PLATELET COUNT (AUTO) 190 K/uL (130-400); RED CELL DISTRIBUTION WIDTH 15.2 % (11.0-15.5); WHITE BLOOD COUNT (AUTO) 7.5 K/uL (4.8-10.8)
[2025-03-17 08:53] LABS: APPEARANCE,URINE CLEAR (CLEAR); BILIRUBIN,URINE NEGATIVE (NEGATIVE); COLOR,URINE LIGHT-YELLOW (YELLOW); GLUCOSE, URINE (UA) NEGATIVE (NEGATIVE); KETONES,URINE NEGATIVE (NEGATIVE); LEUKOCYTE ESTERASE ,URINE NEGATIVE Leu/uL (NEGATIVE); NITRATE,URINE NEGATIVE (NEGATIVE); OCCULT BLOOD,URINE NEGATIVE (NEGATIVE); PROTEIN,URINE NEGATIVE (NEGATIVE); UROBILINOGEN,URINE 0.2 mg/dL (0.2-1.0)
[2025-03-17] MEDS: ketOROlac 15MG/ML VIAL (15MG/ML) IV ONE (08:54)
[2025-03-17 08:59] LABS: CREATININE 0.9 mg/dL (0.5-1.3); POTASSIUM 3.7 mmol/L (3.5-5.1)
[2025-03-17 09:01] LABS: ADD UA MICROSCOPIC NO
[2025-03-17 09:01] LABS: RAPID GROUP A STREP negative (NEGATIVE)
[2025-03-17 09:09] LABS: INFLUENZA TYPE A Negative For Type A (NEGATIVE); INFLUENZA TYPE B Negative For Type B (NEGATIVE)
--- NOTE | 2025-03-17 09:23 | HMCIMG ---
Exam Type: CHEST 1VW Clinical Information: cough Comparison: None Findings: The lungs are clear of infiltrates. The heart is normal in size. The bony and soft tissue structures of the chest are unremarkable. Impression: Clear lungs.
[2025-03-17 09:50] LABS: COVID19 (SARS ANTIGEN RAPID) POSITIVE FOR SARS AG (NEGATIVE)
[2025-03-17] MEDS ORDERED: NIRM1TAB9 PO (10:01)
[2025-03-17] MEDS ORDERED: ACET-66 PO (10:01)
[2025-03-17] MEDS ORDERED: MELO-108 PO (10:01)
[2025-03-17 10:16] VITALS: BP 149/97; PULSE 104; RESP 16; TEMP 98.9; O2SAT 99
== END 2025-03-17 10:17 | disposition home or self-care (01) ==
LOC: EDH 08:23
DX: U07.1 COVID-19 (principal); R79.89 Other specified abnormal findings of blood chemistry; E86.0 Dehydration; E11.9 Type 2 diabetes mellitus without complications; E66.9 Obesity, unspecified; F17.200 Nicotine dependence, unspecified, uncomplicated; I10 Essential (primary) hypertension; Z68.42 Body mass index [BMI] 45.0-49.9, adult
CPT/HCPCS: 99284; 96374; 96361; 71045; 87426; 82550; 84484; 80048; 85025; 87040 ×2; 87086; 87880; 87804 ×2; 83605; 81003; 36415; J1885; J7030

== ENCOUNTER 2025-10-22 12:58 | Emergency (ER) | payer BC ==
[~2025-10-22] VITALS: Ht 182.9 cm; Wt 158.8 kg
[~2025-10-22 12:58] MED LIST: ACET-66 PO; MELO-108 PO; NIRM1TAB12 PO
[2025-10-22 12:59] VITALS: BP 163/98; PULSE 117; RESP 18; TEMP 98.2
[2025-10-22] MEDS ORDERED: IBUP-1492 PO (13:17)
[2025-10-22] MEDS ORDERED: AMOX1TAB16 PO (13:17)
--- NOTE | 2025-10-22 13:20 | ERN ---
ED Note History of Present Illness Stated Complaint: TOOTH PAIN Chief Complaint: Tooth Ache/Pain Time Seen by MD: 13:01 Time Seen by Midlevel: 13:05 Dictation: Mr. Sarmiento is a 39 year old male with history of hypertension, obesity, and chronic low back pain/sciatica presented to the emergency department for evaluation of toothache. He reports 3-4 days of dental pain on the right side. He has multiple missing back , both upper and lower, as well as many with large fillings, cracked enamel, and broken/decayed surfaces. He has swollen/irritated gums and referred pain to the right ear. He has not seen a dentist in quite a long period of time. He rates pain 08/02. He denies fever, chills, shortness of breath, cough, chest pain, palpitations, edema, abdominal pain, nausea, vomiting, hematemesis, constipation, diarrhea, melena, hematochezia, dysuria, headache, dizziness, or focal weakness/paresthesia Allergies: Coded Allergies: No Known Drug Allergies (Unverified Allergy, Unknown, 10/05/23) Home Meds Active Scripts Ibuprofen (Ibuprofen) 600 Mg Tablet, 600 MG PO Q6H PRN for PAIN, #15 TAB 0 Refills Prov:SAQIB BURRIS [employer] 10/22/25 Amoxicillin/Potassium Clav (Amox Tr-K Clv 875-125 mg Tab) 875 Mg-125 Mg Tablet, 1 TAB PO BID for 7 Days, #14 TAB 0 Refills Prov:SAQIB BURRIS [employer] 10/22/25 Acetaminophen (Tylenol) 500 Mg Tab, 2 TAB PO Q6HPRN PRN for pain or fever for 10 Days, #30 TAB 0 Refills Prov:NAV ACEVES DO 03/17/25 Nirmatrelvir/Ritonavir (Paxlovid 300-100 mg Dose Pack) 300 Mg (150 Mg X 2)-100 Mg Tab.ds.pk, 1 EACH PO BID, #1 PACK Prov:NAV ACEVES DO 03/17/25 Meloxicam (Meloxicam) 15 Mg Tablet, 15 MG PO DAILY PRN for PAIN for 10 Days, #10 TAB Prov:NAV ACEVES DO 03/17/25 Past Medical History Past Medical History: Hypertension, Seizure Additional Past Medical Hx: Chronic low back pain, sciatic pain Surgical History: None Family History: Negative Social History: Smokers, ETOH, Negative RN Note Reviewed/Agreed w/PFSH: Yes Review of System Dictation REVIEW OF SYSTEMS: CONSTITUTIONAL: Patient denies fevers, chills, sweats and weight changes. EYES: Patient denies any visual symptoms. EARS, NOSE, AND THROAT: No difficulties with hearing. No symptoms of rhinitis or sore throat. Reports pain to right upper and lower back teeth with irritated gums and referred right ear pain. CARDIOVASCULAR: Patient denies chest pains, palpitations, orthopnea and paroxysmal nocturnal dyspnea. RESPIRATORY: No dyspnea on exertion, no wheezing or cough. GI: No nausea, vomiting, diarrhea, constipation, abdominal pain, hematochezia or melena. : No urinary hesitancy or dribbling. No nocturia or urinary frequency. No abnormal urethral discharge. MUSCULOSKELETAL: No myalgias or arthralgias. NEUROLOGIC: No chronic headaches, no seizures. Patient denies numbness, tingling or weakness. PSYCHIATRIC: Patient denies problems with mood disturbance. No problems with anxiety. ENDOCRINE: No excessive urination or excessive thirst. DERMATOLOGIC: Patient denies any rashes or skin changes. Initial Vital Sign VS Vital Signs Date Time Temp Pulse Resp B/P (MAP) Pulse Ox O2 Delivery O2 Flow Rate FiO2 10/22/25 12:59 98.2 117 18 163/98 99 . Physical Exam Dictation Vital signs: Reviewed. Afebrile Constitutional: No acute distress. Uncomfortable Head/Face: Normocephalic, atraumatic. Eyes: Periorbital areas with no swelling, redness, or edema. Lids and lashes are normal. Conjunctival injection is absent. Sclera anicteric. Pupils equal, round, reactive to light. ENT: Pinnas intact and no signs of trauma or erythema. Ear canals clear and no discharge. TMs no erythema. No nasal discharge or bleeding noted. Oropharynx with no exudate, redness, swelling, masses, exudates, or evidence of obstruction. Uvula midline. Mucous membranes moist. Oral exam reveals poor dentition throughout the entire right upper and lower arches. Multiple teeth are missing, and several remaining teeth have large fillings, cracked enamel, and broken or decayed surfaces. There are multiple dental caries present. The right gingiva appears irritated with mild erythema but no fluctuance, drainage, or visible abscess. There is no facial swelling, trismus, drooling, or submandibular induration. There is no floor of the mouth elevation. Patient states pain 9/10. Neck: Trachea midline, no masses palpated, and no cervical lymphadenopathy. No swelling. Supple, full range of motion. Chest/Axilla: No tenderness, no crepitus, no paradoxical movement, no retractions. Cardiovascular: Regular rate, regular rhythm, no murmur, no gallops. Symmetric pulses. No peripheral edema. Respiratory: Respirations even and unlabored. Lung sounds clear; no wheezes, rales or rhonchi. Room air SpO2 99% Gastrointestinal: Obese. No distention is appreciated. Bowel sounds are normal. No mass or organomegaly . There is no tenderness. No rebound. No rigidity. No voluntary or involuntary guarding. No Enriquez's sign. Neurological: Normal speech, gross motor function intact, gross sensory function intact. No focal weakness/Paresthesia. Musculoskeletal/Extremities: All extremities have full range of motion, no pain or tenderness on palpation. Symmetric pulses. Integumentary: Intact. Skin is normal color, warm and dry. Cap refill less than 2 seconds ED Course ED Course Orders Procedure Category Date Status Time Hydrocodone/Apap PHA 10/22/25 Complete 5/325 ([place] 5/325mg) 13:30 Amox/Clav 875/125mg PHA 10/22/25 Complete Tab (Augmentin 875-1 13:30 Current Medications Medications (Trade) Dose Ordered Sig/Keith Route PRN Reason Start Time Stop Time Status Last Admin Dose Admin Acetaminophen/ Hydrocodone Bitart (NORco 5/325MG) 1 tab ONCE ONCE PO 10/22/25 13:30 10/22/25 13:31 DC 10/22/25 13:38 Amoxicillin/ Clavulanate Potassium (Augmentin 875-125 Tablet) 1 each ONCE ONCE PO 10/22/25 13:30 10/22/25 13:31 DC 10/22/25 13:38 Vital Signs Date Time Temp Pulse Resp B/P (MAP) Pulse Ox O2 Delivery O2 Flow Rate FiO2 10/22/25 12:59 98.2 117 18 163/98 99 Uneventful ED course. Noted in the extremely poor dentition as described in examination. No signs of abscess at this time. Vital signs stable; afebrile. Pain 9/10. He received dose [place] x1 for discomfort as well as initial dose Augmentin. Discussed importance of follow up with dentist. Medical Decision Making MDM MDM: Differential diagnosis: Dental abscess, dental caries, gingival irritation, fracture tooth Rationale: Tests considered and ordered secondary to shared decision making include: Examination Previous outside records reviewed: Old ER visits. Risk of complication and/or morbidity or mortality of patient management: None Medications-Per medication reconciliation Need for hospitalization: Patient does not meet criteria for hospitalization. Need for emergency major/minor surgery: No There are no social concerns with this patient. Prescription drug management: Ibuprofen, Augmentin Prescriptions will include symptomatic care Patient's prior external medical records from other ER visits were reviewed by me as indicated. Prior testing and results from previous visits were reviewed. Prior tests were taken into account with medical decision making and resource utilization, independent historian/historians were used to obtain complete medical history. I independently interpreted the test that were performed, results were reviewed by me and considered findings on radiology if ordered. Medical management and examination interpretation discussions were had by me with other qualified healthcare professionals as indicated for the patient's care. DX & DISP Disposition: Discharge Departure Impression: Primary Impression: Dental caries Additional Impressions: Broken and decayed teeth, Gingivitis, Referred otalgia of right ear, Referred otalgia, Infected dental caries Condition: Stable Scripts Ibuprofen (Ibuprofen) 600 Mg Tablet 600 MG PO Q6H PRN for PAIN, #15 TAB 0 Refills Prov: SAQIB BURRIS [facility] 10/22/25 Amoxicillin/Potassium Clav (Amox Tr-K Clv 875-125 mg Tab) 875 Mg-125 Mg Tablet 1 TAB PO BID for 7 Days, #14 TAB 0 Refills Prov: SAQIB BURRIS [facility] 10/22/25 Additional Instructions: You were seen today for dental pain and gum irritation on the right side. Ear exam shows multiple caries and broken or cracked teeth, and your gums or irritated, which is consistent with a dental infection. There was no evidence of a deep abscess or spreading infection today. Start the antibiotic as prescribed Augmentin twice daily for seven days; finish the full course. You may take ibuprofen or acetaminophen for pain. Rinse your mouth with warm saltwater several times a day to reduce irritation. Must follow up with a dentist as soon as possible, ideally within the next 24-48 hours, for definitive treatment. Antibiotics alone do not fix dental infections-the source most be treated with cleaning, extraction, or repair. Avoid very hot or cold foods and drinks on the affected side. You on the opposite side of your mouth. Maintain good oral hygiene and gently brush this surrounding teeth and gums. Avoid smoking or using straws, as this can worsen infection and pain return to the e mergency department immediately if you develop: Increased facial swelling, swelling under the jaw or in the neck, fever or chills, difficulty swallowing or drooling, trouble breathing, severe worsening pain, change in your voice, or inability to open your mouth (trismus). These symptoms may indicate a deep or spreading infection that requires emergency treatment. Referrals: ALEXANDRA WHITE PA-C (PCP) Time of Disposition: 13:19 ATTESTATION BY PHYSICIAN I PERFORMED THE SUBSTANTIVE PORTION OF THE VISIT. I HAVE REVIEWED AND PERSONALLY MADE AND APPROVED THE MANAGEMENT PLAN THAT IS DOCUMENTED IN THE NOTE BY MYSELF FOR THE A PP. SAQIB BURRIS Oct 22, 2025 13:20 BOYD STEWART MD Oct 24, 2025 07:40
[2025-10-22] MEDS: HYDROcodone/APAP 5/325 1 TAB TABLET PO ONE (13:38)
[2025-10-22] MEDS: AMOX/CLAV 875/125MG TAB PO ONE (13:38)
== END 2025-10-22 13:36 | disposition home or self-care (01) ==
LOC: EDH 12:58
DX: K02.9 Dental caries, unspecified (principal); K04.7 Periapical abscess without sinus; K03.81 Cracked tooth; H92.01 Otalgia, right ear; K05.10 Chronic gingivitis, plaque induced; G89.29 Other chronic pain; I10 Essential (primary) hypertension; F17.200 Nicotine dependence, unspecified, uncomplicated; E66.9 Obesity, unspecified; Z68.42 Body mass index [BMI] 45.0-49.9, adult
CPT/HCPCS: 99283